=== PATIENT | female | born 1985 | race Hispanic/Latino ===

== ENCOUNTER 2020-08-12 10:23 | Inpatient (IN) | payer BC ==
[~2020-08-12] VITALS: Ht 152.4 cm; Wt 74.4 kg
[2020-08-12 18:23] LABS: MEAN CORPUSCULAR HEMOGLOBIN 28.2 pg (27.0-33.0); MEAN CORPUSCULAR HGB CONC 33.2 g/dL (32.0-36.0); MEAN CORPUSCULAR VOLUME 84.8 fL (79-99); RED BLOOD CELL COUNT(AUTO) 4.01 MIL/uL (4.00-5.50); RED CELL DISTRIBUTION WIDTH 15.3 % (11.0-15.5); WHITE BLOOD COUNT (AUTO) 8.6 K/uL (4.8-10.8)
[2020-08-12 18:24] LABS: BILIRUBIN,URINE Negative (NEGATIVE); COLOR,URINE Yellow (YELLOW); GLUCOSE, URINE (UA) Negative (NEGATIVE); KETONES,URINE Negative (NEGATIVE); LEUKOCYTE ESTERASE ,URINE Small (NEGATIVE); NITRATE,URINE Negative (NEGATIVE); OCCULT BLOOD,URINE Negative (NEGATIVE); PH,URINE 6.5 (5.0-8.0); PROTEIN,URINE Negative (NEGATIVE); UROBILINOGEN,URINE 0.2 mg/dL (0.2-1.0)
[2020-08-12 18:25] LABS: APPEARANCE,URINE SLIGHTLY CLOUDY (CLEAR)
[2020-08-12 18:34] LABS: BACTERIA,URINE Few /HPF (None Seen); RBC,URINE 0-1 /HPF (0-1)
[2020-08-12 18:35] LABS: SQUAMOUS EPITHELIAL CELL,UR Moderate /HPF (0-2)
[2020-08-12] MEDS ORDERED: EPHEDRINE SULFATE 50 MG/ML AMPULE IVP PRN (18:45)
[2020-08-12] MEDS ORDERED: NALOXONE HCL 0.4 MG/1 ML ML IV PRN (18:45)
[2020-08-12] MEDS ORDERED: DINOPROSTONE 10 MG VAGINAL SUPP VG SCH (18:45)
[2020-08-12] MEDS ORDERED: LACTATED RINGERS 500 ML 500 ML IV PRN (18:45)
[2020-08-12] MEDS ORDERED: LACTATED RINGERS 1000ML 1,000 ML IV ONE (18:47)
[2020-08-12 19:51] VITALS: BP 114/73
[2020-08-12] MEDS ORDERED: CALC500T7 PO (19:54)
[2020-08-12] MEDS ORDERED: PNV11TAB5 PO (19:54)
[2020-08-12] MEDS: LACTATED RINGERS 1000ML 1,000 ML IV PRN (20:07)
[2020-08-13] MEDS ORDERED: OXYTOCIN-LR 20 UNITS/1000 ML 1,000 ML IV ONE ×2 (03:39→17:33)
[2020-08-13] MEDS: LACTATED RINGERS 1000ML 1,000 ML IV PRN ×3 (05:13→19:07)
[2020-08-13] MEDS ORDERED: FENTANYL CITRATE PF 50 MCG/1 ML 2ML VIAL ONE (12:12)
[2020-08-13] MEDS ORDERED: LIDOCAINE 2%-EPI 1:200,000 20 ML VIAL IJ ONE (14:59)
[2020-08-14] MEDS ORDERED: CEFAZOLIN SODIUM 1 GM VIAL ONE (02:39)
[2020-08-14] MEDS ORDERED: CEFAZOLIN SODIUM 1 GM VIAL IVP PRN (02:45)
[2020-08-14] MEDS ORDERED: TRANEXAMIC ACID 1000MG/10ML ONE (02:51)
[2020-08-14] MEDS ORDERED: KETAMINE HCL 100 MG/ML 5ML VIAL IJ ONE (03:16)
[2020-08-14] MEDS ORDERED: OXYTOCIN 10 USP UNITS/ML ONE (03:27)
[2020-08-14] MEDS ORDERED: DURAMORPH PF1 MG/ML 10ML AMP IV ONE (03:28)
[2020-08-14] MEDS ORDERED: METHYLERGONOVINE MALEATE 0.2 MG/1 ML ML ONE (03:35)
[2020-08-14] MEDS ORDERED: MEPERIDINE-PF 50 MG/ML SYG ONE (03:41)
[2020-08-14] MEDS ORDERED: SODIUM CHLORIDE 0.9% 10 ML VIAL IVP PRN (04:00)
[2020-08-14] MEDS ORDERED: DEXTROSE 5 %-0.45 % NACL 1,000 ML IV PRN (04:00)
[2020-08-14] MEDS ORDERED: PROMETHAZINE HCL 25 MG/ML 1ML AMPULE IM PRN (04:00)
[2020-08-14] MEDS ORDERED: MEPERIDINE-PF 75 MG/ML SYG IM PRN (04:00)
[2020-08-14] MEDS ORDERED: OXYTOCIN-LR 20 UNITS/1000 ML 1,000 ML IV PRN (04:00)
[2020-08-14] MEDS ORDERED: ONDANSETRON HCL 4 MG/2 ML VIAL ONE (04:04)
[2020-08-14 07:22] VITALS: BP 128/83
[2020-08-14 08:15] LABS: HEPATITIS Bs ANTIGEN SCREEN P Negative (Negative)
[2020-08-14] MEDS ORDERED: FLU VACC QS2020-21(6MOS UP)/PF 60 MCG/0.5 ML ML IM ONE (09:45)
[2020-08-14] MEDS: FLU VACC QS2020-21(6MOS UP)/PF 60 MCG/0.5 ML ML IM SCH ×2 (10:40→20:38)
--- NOTE | 2020-08-14 10:40 | NUR ---
ROUNDS DR BRITT AT BEDSIDE TO EVALUATE PT, ORDERS RECEIVED TO TURN OFF EPIDURAL AND REMOVE WOOD CATHETER. PT TO HAVE DRESSING ON ABD CONTINUED. PT TO PROGRESS WITH PO PAIN MEDS NEEDED.
--- NOTE | 2020-08-14 10:41 | NUR ---
INFLUENZA VACCINE FLU VACCINE GIVEN TO LEFT DELTOID LOT NUMBER [id number], [id number]. TOLERATED WELL.
--- NOTE | 2020-08-14 10:57 | NUR ---
EPIDURAL EPIDURAL REMOVED PER ASEPTIC TECHNIQUE, TOLERATED WELL, TIP INTACT. TOLERATED WELL.
--- NOTE | 2020-08-14 11:09 | NUR ---
WOOD WOOD CATHETER REMOVED PER ASEPTIC TECHNIQUE, TOLERATED WELL. REMOVED 700ML CLEAR YELLOW URINE FROM WOOD BAG. PERICARE GIVEN AND MESH PANTIES PLACED. INSTRUCTED PT TO CALL NURSING STAFF FOR ANY ASSISTANCE OUT OF BED. RIGHT LEG NOTED TO BE NUMB.
[2020-08-14 11:34] VITALS: BP 116/68
[2020-08-14] MEDS ORDERED: LANOLIN 30GM OINTMENT TP PRN (12:30)
[2020-08-14] MEDS ORDERED: BISACODYL 10 MG SUPP.RECT RC PRN (12:30)
[2020-08-14] MEDS ORDERED: ACETAMINOPHEN EXTRA STRENGTH 500 MG TABLET PO PRN (12:30)
[2020-08-14] MEDS ORDERED: ACETAMINOPHEN-CODEINE 300/30MG TAB PO PRN (12:30)
[2020-08-14] MEDS ORDERED: HYDROCODONE/ACETAMINOPHEN 5/325 MG TAB PO PRN (12:30)
--- NOTE | 2020-08-14 13:00 | NUR ---
MOBILITY ASSISTED TO SIDE OF BED TO SIT, PT STATES HER LEGS STILL FEEL "NUMB" FROM EPIDURAL. ASSISTED TO SEMI FOWLERS POSITION IN BED. INSTRUCTED PT TO NOTIFY STAFF FOR ANY ASSISTANCE. CALL [facility] WITHIN REACH.
--- NOTE | 2020-08-14 15:40 | NUR ---
VOID PT UNABLE TO AMBULATE AT THIS TIME. PT REPORTS RIGHT LEG TO BE "TINGLY." FOR SAFETY MEASURES, BEDPAN GIVEN TO PT. PT VOIDED 500ML URINE. PERICARE GIVEN AND UNDERPADS CHANGED. CALL [facility] WITHIN REACH.
[2020-08-14 16:35] VITALS: BP 112/67
[2020-08-14] MEDS: IBUPROFEN 600 MG TABLET PO PRN (19:01)
[2020-08-14 19:20] VITALS: BP 124/64
[2020-08-14] MEDS: SIMETHICONE 80 MG TAB.CHEW PO PRN (21:05)
[2020-08-14] MEDS: DOCUSATE SODIUM 100 MG CAP PO SCH (21:05)
--- NOTE | 2020-08-14 22:40 | NUR ---
PT. AMBULATED IN HALLWAY FOR 20 MINUTES, WELL TOLERATED. DENIED PAIN AND DISCOMFORT.
[2020-08-14 23:48] VITALS: BP 126/72
[2020-08-15 03:03] VITALS: BP 123/72
[2020-08-15 06:34] LABS: HEMATOCRIT 29.6 % (36-48); MEAN CORPUSCULAR HEMOGLOBIN 28.2 pg (27.0-33.0); MEAN CORPUSCULAR HGB CONC 33.1 g/dL (32.0-36.0); MEAN CORPUSCULAR VOLUME 85.1 fL (79-99); RED BLOOD CELL COUNT(AUTO) 3.48 MIL/uL (4.00-5.50); RED CELL DISTRIBUTION WIDTH 15.3 % (11.0-15.5); WHITE BLOOD COUNT (AUTO) 14.3 K/uL (4.8-10.8)
[2020-08-15 07:29] VITALS: BP 122/81
[2020-08-15] MEDS: SIMETHICONE 80 MG TAB.CHEW PO PRN (09:00)
[2020-08-15] MEDS: DOCUSATE SODIUM 100 MG CAP PO SCH (09:00)
[2020-08-15] MEDS: IBUPROFEN 600 MG TABLET PO PRN (09:02)
[2020-08-15 11:27] VITALS: BP 137/80
== END 2020-08-15 14:15 | disposition home or self-care (01) | DRG 788 ==
LOC: LDH 17:46 → WSH 08-14 07:39
PROVIDERS: ADMIT Specialist; ATTEND Specialist
PROC: 3E02340 Introduction of Influenza Vaccine into Muscle, Percutaneous Approach (ICD-10-PCS; 2020-08-14)
PROC: 10D00Z1 Extraction of Products of Conception, Low, Open Approach (ICD-10-PCS; principal; 2020-08-14 02:40)
DX: O62.2 Other uterine inertia (principal); Z3A.40 40 weeks gestation of pregnancy; Z37.0 Single live birth; Z23 Encounter for immunization; O69.81X0 Labor and delivery complicated by cord around neck, without compression, not applicable or unspecified
CPT/HCPCS: 36415; 59510; 81001; 85027; 86592; 86850; 86900; 86901; 87340; A4344; G0378; J0690; J2175; J2210; J2274; J2405; J2590; J3010; J3490; J7120; Q2035